=== PATIENT | female | born 1980 | race Caucasian/White ===

== ENCOUNTER 2017-09-27 14:17 | Emergency (ER) | payer BC, SELFPAY ==
--- NOTE | 2017-09-27 15:21 | RAD ---
LEFT FOOT THREE VIEWS: History: 37-year-old female with history of left foot pain for one week without injury. Comparison: 02-02-15 FINDINGS: No fracture, dislocation, or other significant acute osseous abnormality. Mild degenerative changes w ith a small inferior calcaneal enthesophyte. IMPRESSION: Mild degenerative changes. No fracture or dislocation. POS: [facility]
[2017-09-27] MEDS ORDERED: Ibuprofen 800 MG TAB ONE (15:51)
== END 2017-09-27 16:00 | disposition home or self-care (01) ==
LOC: ERS 14:17
DX: M72.2 Plantar fascial fibromatosis (principal)

== ENCOUNTER 2018-01-21 01:05 | Emergency (ER) | payer SELFPAY ==
[2018-01-21 02:14] LABS: #Lymphocytes 1.2 thou/uL (1.20-3.40); #Monocytes 0.6 thou/uL (0.11-0.59); #Neutrophils 10.7 thou/uL (1.40-6.50); %Basophils 0.2 % (0.0-1.0); %Eosinophils 0.2 % (0.0-10.0); %Lymphocytes 9.4 % (21.0-51.0); %Monocytes 4.7 % (0.0-10.0); %Neutrophils 85.4 % (42.0-75.0); Hemoglobin 12.5 g/dL (12.0-16.0); Mean Corpuscular Hemoglobin 28.4 pg (27.0-31.0); Mean Corpuscular Volume 83.5 fL (78.0-98.0); Platelet Count 245 thou/uL (130-400); White Blood Cell (WBC) Count 12.6 thou/uL (4.8-10.8)
[2018-01-21] MEDS ORDERED: Ketorolac Tromethamine 30 MG/ML VIAL ONE (02:37)
[2018-01-21 03:00] LABS: ALT (SGPT) 16 U/L (8-55); AST (SGOT) 16 U/L (5-34); Albumin 4.4 g/dL (3.5-5.0); Alkaline Phosphatase 88 U/L (40-150); Anion Gap 14 mmol/L (10-20); BUN (Urea Nitrogen) 17 mg/dL (7.0-18.7); Bilirubin, Total 0.3 mg/dL (0.2-1.2); Calc. Creatinine Clearance 0 mL/min (70-130); Calcium 9.6 mg/dL (7.8-10.44); Carbon Dioxide 21 mmol/L (22-29); Chloride 109 mmol/L (98-107); Estimated GFR-MDRD 62; Globulin 3.1 g/dL (2.4-3.5); Glucose 121 mg/dL (70-105); Protein, Total 7.5 g/dL (6.0-8.3); Sodium 140 mmol/L (136-145)
[2018-01-21 03:33] LABS: Bilirubin Negative (Negative); Blood, Urine Negative (Negative); Clarity CLOUDY (Clear); Glucose, Urine (Dipstick) Negative (Negative); Leukocyte Small (Negative); Nitrite Negative (Negative); Protein, Urine (Dipstick) Negative (Neg-Trace); Specific Gravity, Urine 1.027 (1.002-1.036); Urobilinogen 0.2 mg/dL (0.2-1.0); pH, Urine 5.5 (5.0-9.0)
[2018-01-21 03:35] LABS: Bacteria/HPF None Seen HPF (None Seen); Hyaline Casts/LPF 0-3 HYALINE CAST LPF (0-3 Hyaline); Pathc Cast-AUWi Flag 1.01 (0-2.49)
[2018-01-21 03:36] LABS: Pregnancy Test - Urine (BHCG) Negative (Negative); Pregu Control Background? CLEAR/WHITE (CLR/WHITE); Pregu Control Bar Appear? YES (CONTROL BAR); Specific Gravity 1.027 (1.002-1.036)
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
[2018-01-21] MEDS ORDERED: ISOVUE-370 76%-LOCM 1 ML ONE (13:23)
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
== END 2018-01-21 04:45 | disposition home or self-care (01) ==
LOC: ERS 01:05
DX: M54.2 Cervicalgia (principal); M25.511 Pain in right shoulder; M25.531 Pain in right wrist; Y04.0XXA Assault by unarmed brawl or fight, initial encounter
CPT/HCPCS: 70486; 70498; 71046; 80053; 81003; 81015; 81025; 85025; 94760; 96374; J1885

== ENCOUNTER 2018-03-12 19:28 | Emergency (ER) | payer SELFPAY ==
[2018-03-12] MEDS ORDERED: Metoclopramide HCl 10 MG TAB ONE (21:22)
[2018-03-12] MEDS ORDERED: diphenhydrAMINE 25 MG CAP ONE (21:22)
[2018-03-12] MEDS ORDERED: Ketorolac Tromethamine 30 MG/ML VIAL ONE (22:24)
[2018-03-12] MEDS ORDERED: Ondansetron HCl/PF 4 MG/2 ML Vial ONE (22:24)
[2018-03-12] MEDS ORDERED: methylPREDNISolone Sod Succ/PF 125 MG/2 ML VIAL ONE (22:43)
[2018-03-12] MEDS ORDERED: Magnesium Sulfate 2 GM/100 ML BAG ONE (22:43)
== END 2018-03-13 00:03 | disposition home or self-care (01) ==
LOC: ERS 19:28
DX: R51 Headache (principal)
CPT/HCPCS: 96365; 96375; J1885; J2405; J2930; J3475

== ENCOUNTER 2018-05-17 14:45 | Emergency (ER) | payer SELFPAY ==
[2018-05-17 15:46] LABS: #Basophils 0.1 thou/uL (0.0-0.2); #Eosinphils 0.1 thou/uL (0.0-0.7); #Lymphocytes 2.4 thou/uL (1.20-3.40); #Monocytes 0.9 thou/uL (0.11-0.59); #Neutrophils 9.6 thou/uL (1.40-6.50); %Basophils 0.5 % (0.0-1.0); %Eosinophils 0.6 % (0.0-10.0); %Lymphocytes 18.7 % (21.0-51.0); %Monocytes 6.6 % (0.0-10.0); %Neutrophils 73.6 % (42.0-75.0); Hemoglobin 13.5 g/dL (12.0-16.0); Mean Corpuscular HGB CONC 31.2 g/dL (32.0-36.0); Mean Corpuscular Hemoglobin 24.9 pg (27.0-31.0); Mean Corpuscular Volume 79.9 fL (78.0-98.0); Mean Platelet Volume 9.2 fL (7.4-10.4); Platelet Count 226 thou/uL (130-400); RBC Distribution Width 13.9 % (11.5-14.5)
[2018-05-17 16:08] LABS: ALT (SGPT) 11 U/L (8-55); AST (SGOT) 11 U/L (5-34); Albumin 3.7 g/dL (3.5-5.0); Alkaline Phosphatase 78 U/L (40-150); Anion Gap 13 mmol/L (10-20); BUN (Urea Nitrogen) 11 mg/dL (7.0-18.7); Bilirubin, Total 0.2 mg/dL (0.2-1.2); Calc. Creatinine Clearance 0 mL/min (70-130); Calcium 8.5 mg/dL (7.8-10.44); Carbon Dioxide 18 mmol/L (22-29); Chloride 111 mmol/L (98-107); Estimated GFR-MDRD 77; Globulin 2.7 g/dL (2.4-3.5); Glucose 129 mg/dL (70-105); Potassium 3.7 mmol/L (3.5-5.1); Protein, Total 6.4 g/dL (6.0-8.3); Sodium 138 mmol/L (136-145)
[2018-05-17] MEDS ORDERED: Dicyclomine 20 MG TAB ONE (17:55)
[2018-05-17 18:06] LABS: Bilirubin Negative (Negative); Blood, Urine Negative (Negative); Clarity CLOUDY (Clear); Glucose, Urine (Dipstick) Negative (Negative); Leukocyte Trace (Negative); Nitrite Negative (Negative); Protein, Urine (Dipstick) Negative (Neg-Trace); Urobilinogen 0.2 mg/dL (0.2-1.0); pH, Urine 5.5 (5.0-9.0)
[2018-05-17 18:08] LABS: Bacteria/HPF None Seen HPF (None Seen); Hyaline Casts/LPF 0-3 HYALINE CAST LPF (0-3 Hyaline); Pathc Cast-AUWi Flag 0.58 (0-2.49); RBC/HPF 0-3 HPF (0-3); Squamous Epithelial 0-3 HPF (0-3); WBC/HPF 0-3 HPF (0-3)
== END 2018-05-17 18:44 | disposition home or self-care (01) ==
LOC: ERS 14:45
DX: R10.33 Periumbilical pain (principal); R10.13 Epigastric pain; R55 Syncope and collapse; R11.0 Nausea; R42 Dizziness and giddiness
CPT/HCPCS: 36415; 80053; 81003; 81015; 85025; 93005

== ENCOUNTER 2018-08-17 21:51 | Emergency (ER) | payer SELFPAY ==
[2018-08-17] MEDS ORDERED: Ketorolac Tromethamine 60 MG/2 ML VIAL ONE (22:37)
== END 2018-08-17 23:12 | disposition home or self-care (01) ==
LOC: ERS 21:51
DX: M62.838 Other muscle spasm (principal); M54.2 Cervicalgia
CPT/HCPCS: 96372; J1885

== ENCOUNTER 2018-12-01 12:31 | Emergency (ER) | payer SELFPAY ==
[2018-12-01 13:22] LABS: Bilirubin Negative (Negative); Blood, Urine Negative (Negative); Clarity CLEAR (Clear); Glucose, Urine (Dipstick) Negative (Negative); Leukocyte Trace (Negative); Nitrite Negative (Negative); Protein, Urine (Dipstick) Negative (Neg-Trace); Specific Gravity, Urine 1.018 (1.002-1.036); Urobilinogen 0.2 mg/dL (0.2-1.0)
[2018-12-01 13:23] LABS: #Basophils 0.1 thou/uL (0.0-0.2); #Eosinphils 0.2 thou/uL (0.0-0.7); #Lymphocytes 2.3 thou/uL (1.20-3.40); #Monocytes 0.8 thou/uL (0.11-0.59); #Neutrophils 8.5 thou/uL (1.40-6.50); %Basophils 0.7 % (0.0-1.0); %Eosinophils 1.8 % (0.0-10.0); %Lymphocytes 19.4 % (21.0-51.0); %Monocytes 6.6 % (0.0-10.0); %Neutrophils 71.5 % (42.0-75.0); Hemoglobin 12.5 g/dL (12.0-16.0); Mean Corpuscular HGB CONC 32.9 g/dL (32.0-36.0); Mean Corpuscular Hemoglobin 27.7 pg (27.0-31.0); Mean Corpuscular Volume 84.2 fL (78.0-98.0); Mean Platelet Volume 8.7 fL (7.4-10.4); Platelet Count 236 thou/uL (130-400); White Blood Cell (WBC) Count 11.9 thou/uL (4.8-10.8)
[2018-12-01 13:24] LABS: Hyaline Casts/LPF 0-3 HYALINE CAST LPF (0-3 Hyaline); Pathc Cast-AUWi Flag 0.54 (0-2.49); Squamous Epithelial 0-3 HPF (0-3)
[2018-12-01 13:35] LABS: RBC/HPF 0-3 HPF (0-3)
[2018-12-01 13:36] LABS: Bacteria/HPF Rare-Few HPF (None Seen)
[2018-12-01] MEDS ORDERED: Morphine 4 MG/ML VIAL ONE (13:45)
[2018-12-01] MEDS ORDERED: Ondansetron PF 4 MG/2 ML Vial ONE (13:45)
[2018-12-01 14:03] LABS: ALT (SGPT) 11 U/L (8-55); AST (SGOT) 13 U/L (5-34); Albumin 3.7 g/dL (3.5-5.0); Alkaline Phosphatase 74 U/L (40-150); Anion Gap 11 mmol/L (10-20); BUN (Urea Nitrogen) 11 mg/dL (7.0-18.7); Bilirubin, Total 0.3 mg/dL (0.2-1.2); Calc. Creatinine Clearance 0 mL/min (70-130); Calcium 8.9 mg/dL (7.8-10.44); Carbon Dioxide 25 mmol/L (22-29); Chloride 105 mmol/L (98-107); Estimated GFR-MDRD 88; Globulin 2.1 g/dL (2.4-3.5); Glucose 109 mg/dL (70-105); Lipase 27 U/L (8-78); Potassium 3.7 mmol/L (3.5-5.1); Protein, Total 5.8 g/dL (6.0-8.3); Sodium 137 mmol/L (136-145)
[2018-12-01 14:04] LABS: BHCG - Serum Negative (NEGATIVE); Pregs Control Background? CLEAR/WHITE (CLR/WHITE); Pregs Control Bar Appear? YES (CONTROL BAR)
--- NOTE | 2018-12-01 14:15 | ULT ---
TRANSABDOMINAL AND TRANSVAGINAL PELVIC ULTRASOUND WITH GRAYSCALE, COLORFLOW, AND SPECTRAL DOPPLER ANA GING: HISTORY: Right-sided pelvic pain. FINDINGS: The uterus measures 6.1 x 5.4 x 6.1 cm, with a mass in the fundus, consistent with thyroid, measuring 4.9 x 4.2 x 5.3 cm. No endometrial fluid is seen. The endometrium measures 15 mm in thickness. The right ovary measures 4.2 x 2.7 x 3.1 cm, and the left ovary measures 2.5 x 2 x 1.8 cm. Flow is d emonstrated to both ovaries. No adnexal mass is seen. There is a small amount of fluid adjacent to the left ovary. The uterine fibroid is by the right ovary. IMPRESSION: 1. Uterine fibroid. 2. Small amount of free fluid adjacent to the left ovary. POS: [facility]
[2018-12-01] MEDS ORDERED: Ketorolac Tromethamine 30 MG/ML VIAL ONE (15:31)
[2018-12-03 05:14] LABS: Chlamydia by PCR Not Detected (NotDetected); GC by PCR Not Detected (NotDetected)
== END 2018-12-01 15:45 | disposition home or self-care (01) ==
LOC: ERS 12:31
DX: R10.31 Right lower quadrant pain (principal)
CPT/HCPCS: 36415; 76856; 80053; 81003; 81015; 83690; 84703; 85025; 87480; 87491; 87510; 87591; 87660; 96361; 96374; 96375; J1885; J2270; J2405

== ENCOUNTER 2019-09-14 19:03 | Emergency (ER) | payer OTHER, SELFPAY ==
[2019-09-14] MEDS ORDERED: Acetaminophen 500 MG TAB ONE (20:50)
== END 2019-09-14 21:23 | disposition home or self-care (01) ==
LOC: ERS 19:03
DX: J06.9 Acute upper respiratory infection, unspecified (principal); I49.9 Cardiac arrhythmia, unspecified
CPT/HCPCS: 87804; 99284